=== PATIENT | male | born 1995 | race African-American/Black ===

== ENCOUNTER 2020-07-03 22:00 | Emergency (ER) | payer OTHER, SELFPAY ==
[2020-07-03] MEDS ORDERED: Boostrix 0.5 ML (Tdap) VIAL ONE (22:35)
[2020-07-03] MEDS ORDERED: Ketorolac Tromethamine 30 MG/ML VIAL ONE (22:35)
[2020-07-03] MEDS ORDERED: CEFAZOLIN 1 GM VIAL ONE (22:35)
[2020-07-03] MEDS ORDERED: Lidocaine 1% w/Epinephrine 1:100K 20 ML VIAL ONE (23:23)
[2020-07-03 23:59] LABS: Hemoglobin 14.4 g/dL (14.0-18.0); Mean Corpuscular HGB CONC 32.7 g/dL (32.0-36.0); Mean Corpuscular Hemoglobin 28.8 pg (27.0-31.0); RBC Distribution Width 12.4 % (11.5-14.5)
[2020-07-04 00:08] LABS: ALT (SGPT) 18 U/L (8-55); AST (SGOT) 23 U/L (5-34); Albumin 3.8 g/dL (3.5-5.0); Alkaline Phosphatase 74 U/L (40-110); BUN (Urea Nitrogen) 9 mg/dL (8.9-20.6); Band 8 % (5-11); Bilirubin, Total 0.3 mg/dL (0.2-1.2); Calc. Creatinine Clearance 0 mL/min (70-130); Calcium 8.9 mg/dL (7.8-10.44); Carbon Dioxide 23 mmol/L (22-29); Eosinophils 2 % (0-10); Globulin 3.5 g/dL (2.4-3.5); Glucose 112 mg/dL (70-105); Lymphocytes 10 % (21-51); MDiff Complete? YES; Mean Platelet Volume 7.7 fL (7.4-10.4); Neutrophil 80 % (42-75); Platelet Count 295 thou/uL (130-400); Protein, Total 7.3 g/dL (6.0-8.3); White Blood Cell (WBC) Count 22.1 thou/uL (4.8-10.8)
[2020-07-04 00:13] LABS: Bilirubin Negative (Negative); Blood, Urine Negative (Negative); Clarity Clear (Clear); Glucose, Urine (Dipstick) Normal (Negative); Ketone, Urine Negative (Negative); Leukocyte Negative Leu/uL (Negative); Nitrite Negative (Negative); Protein, Urine (Dipstick) 20 mg/dL (Neg-Trace); Specific Gravity, Urine 1.025 (1.002-1.036); Urobilinogen Normal mg/dL (Less than 2)
[2020-07-04 00:25] LABS: Amphetamine Not Detected (NotDetected); Barbiturates Screen Not Detected (NotDetected); Benzodiazepine Screen Not Detected (NotDetected); Cocaine Metabolite Screen Not Detected (NotDetected); Medtox Control Line Valid? VALID (VALID); Medtox Reader # READER 4; Methadone Not Detected (NotDetected); Methamphetamine Not Detected (NotDetected); Opiate Screen Not Detected (NotDetected); Oxycodone Screen Not Detected (NotDetected); Phencyclidine (PCP) Not Detected (NotDetected); THC/Cannabinoid Screen Not Detected (NotDetected); Tricyclic Screen Not Detected (NotDetected)
[2020-07-04 00:54] LABS: Chloride 106 mmol/L (98-107); Potassium 4.4 mmol/L (3.5-5.1); Sodium 137 mmol/L (136-145)
[2020-07-04 01:19] LABS: Anion Gap 12 mmol/L (10-20)
== END 2020-07-04 00:35 | disposition home or self-care (01) ==
LOC: EDBD 22:00 → ERS 22:00
DX: S01.81XA Laceration without foreign body of other part of head, initial encounter (principal); S51.811A Laceration without foreign body of right forearm, initial encounter; V43.52XA Car driver injured in collision with other type car in traffic accident, initial encounter
CPT/HCPCS: 12001; 12014; 71045; 80053; 80306; 81003; 84484; 85025; 90471; 90715; 93005; 96365; 96375; J0690; J1885